=== PATIENT | female | born 1995 | race Caucasian/White ===

== ENCOUNTER 2019-03-26 11:08 | Emergency (ER) | payer SELFPAY ==
[~2019-03-26] VITALS: Ht 162.6 cm; Wt 59.7 kg
[~2019-03-26 11:08] MED LIST: PROM12.512 PO
[2019-03-26 11:47] LABS: BASOPHILS # (AUTO) 0.1 X10'3 (0-0.2); BASOPHILS % (AUTO) 0.7 % (0-1); EOSINOPHILS % (AUTO) 0.2 % (0-6); HEMATOCRIT 42.1 % (35.0-45.0); HEMOGLOBIN 14.2 g/dl (12.0-16.0); LYMPHOCYTES # (AUTO) 1.1 X10'3 (1.1-4.8); LYMPHOCYTES % (AUTO) 12.3 % (21-51); MEAN CORPUSCULAR HEMOGLOBIN 30.4 PG (27.0-31.0); MEAN CORPUSCULAR HGB CONC 33.7 g/dL (33.0-36.5); MEAN CORPUSCULAR VOLUME 90.1 FL (78-98); MEAN PLATELET VOLUME 9.7 FL (7.4-10.4); MONOCYTES # (AUTO) 0.4 X10'3 (0-0.9); MONOCYTES % (AUTO) 4.2 % (2-12); NEUTROPHILS # (AUTO) 7.4 X10'3 (1.8-7.7); NEUTROPHILS % (AUTO) 82.6 % (42-75); PLATELET COUNT 257 X10'3 (140-440); RED BLOOD COUNT 4.68 X10'6 (4.20-5.60); RED CELL DISTRIBUTION WIDTH 12.5 % (11.5-14.5); WHITE BLOOD COUNT 8.9 X10'3 (4.5-11.0)
[2019-03-26 11:52] LABS: URINE HCG NEGATIVE (NEG)
[2019-03-26 11:53] LABS: PARTIAL THROMBOPLASTIN TIME 28 SECONDS (22-32)
[2019-03-26 11:56] LABS: ALANINE AMINOTRANSFERASE 18 U/L (12-78); ALBUMIN 4.6 G/DL (3.4-5.0); ALBUMIN/GLOBULIN RATIO 1.2 (1.1-1.5); ALKALINE PHOSPHATASE 49 IU/L (46-116); ANION GAP 12 (8-16); ASPARTATE AMINO TRANSFERASE 13 U/L (10-37); BILIRUBIN,TOTAL 0.4 MG/DL (0.1-1.0); BLOOD UREA NITROGEN 10 MG/DL (7-18); BUN/CREATININE RATIO 14.3 (6.6-38.0); CALCIUM 8.9 MG/DL (8.5-10.1); CHLORIDE 105 MMOL/L (99-107); GLUCOSE 107 MG/DL (70-104); POTASSIUM 3.8 MMOL/L (3.5-5.1); SODIUM 141 MMOL/L (135-145); TOTAL CARBON DIOXIDE 23.6 MMOL/L (24-32); TOTAL PROTEIN 8.4 G/DL (6.4-8.2); eGFR > 90 ML/MIN
[2019-03-26 12:00] LABS: CLARITY,URINE SLIGHTLY CLOUDY (Clear); COLOR,URINE YELLOW (Yellow); GLUCOSE, URINE NEGATIVE (Neg); KETONES,URINE TRACE mg/dl (Neg); LEUKOCYTE ESTERASE ,URINE NEGATIVE (Neg); NITRITES, URINE NEGATIVE (Neg); OCCULT BLOOD,URINE NEGATIVE (Neg); PROTEIN,URINE NEGATIVE (Neg); UROBILINOGEN,URINE 0.2 E.U/dL (0.2-1.0)
[2019-03-26 12:02] LABS: UA COLLECTION TYPE CLN CATCH MIDSTREAM
[2019-03-26 12:16] LABS: BACTERIA,URINE FEW /HPF (Neg); RBC,URINE NONE SEEN /HPF (0-2); WBC,URINE 0-4 /HPF (0-4)
[2019-03-26 12:17] LABS: MUCUS STRANDS FEW /LPF (Neg); SQUAMOUS EPITHELIAL CELL,UR MODERATE /LPF (FEW)
[2019-03-26] MEDS ORDERED: ONDA8TAB13 PO (12:33)
[2019-03-26] MEDS ORDERED: normal saline 1000ML IV soln IVB ONE ×2 (12:35)
[2019-03-26] MEDS ORDERED: ondansetron/PF 4mg/2ml inj IV ONE (12:35)
[2019-03-26] MEDS ORDERED: pantoprazole 40 MG vial IV ONE (12:35)
[2019-03-26] MEDS ORDERED: loperamide 2mg capsule PO ONE (12:35)
[2019-03-26] MEDS ORDERED: proCHLORperazine 10 MG/2 ml inj IV ONE (13:15)
[2019-03-26 14:02] VITALS: BP 112/68
== END 2019-03-26 14:04 | disposition home or self-care (01) ==
LOC: ER 11:08
DX: K52.9 Noninfective gastroenteritis and colitis, unspecified (principal); R10.13 Epigastric pain; R11.10 Vomiting, unspecified; K21.9 Gastro-esophageal reflux disease without esophagitis; F17.200 Nicotine dependence, unspecified, uncomplicated; F12.90 Cannabis use, unspecified, uncomplicated
CPT/HCPCS: 36415; 71045; 80053; 81001; 81025; 84484; 85025; 85610; 85730; 93005; 96361; 96374; 96375; 99284; C9113; J0780; J2405; J7030; J7040

== ENCOUNTER 2025-05-12 10:47 | Emergency (ER) | payer BC ==
[~2025-05-12] VITALS: Ht 165.1 cm; Wt 58.1 kg
[~2025-05-12 10:47] MED LIST changes: +ONDA-245 PO
[2025-05-12 11:00] VITALS: TEMP 98.9
--- NOTE | 2025-05-12 11:07 | Physician Documentation ---
History of Present Illness ~ Chief Complaint: Flank Pain Stated Complaint: CHEST PAIN Time Seen by MD: 11:05 HPI This is a 30-year-old female who presents to the emergency department for left upper quadrant abdominal pain. She reports that she woke up twice in the night with pain, by the time she woke up this morning the pain was severe and it began to wrap around to the left flank. Denies chills or fever, urinary symptoms. However, she does note that she has had nausea with vomiting of bile. No history of kidney stones in the past. Medication Reconciliation Allergies: Coded Allergies: No Known Allergies (Unverified , 05/12/25) Scheduled Promethazine Hcl (Phenergan), 1 TAB PO Q6H Scheduled PRN Ondansetron 8mg ODT (Ondansetron Odt), 1 TAB PO TID PRN for nausea/vomiting Past Medical History Past Medical History: GERD Past Surgical History: no surgical history Alcohol Use: Rarely Drug Use: marijuana Review of Systems ROS As stated above in the HPI, otherwise all systems are reviewed and negative. Physical Exam Vital Signs: Temperature: 98.9, Source: Temporal, Heart Rate: 78, Respiratory Rate: 18, BP: 116/86, Pulse Oximetry: 99, Weight: 58.100 Oxygen Flow Rate: 0 Physical Exam General: Alert, no apparent distress. HEENT: PERRL, EOMI, no injection, moist mucous membranes. Neck: Full range of motion. Respiratory: Lungs clear, no respiratory distress. Chest: No accessory muscle use. Cardiovascular: Regular rate and rhythm, no murmurs. Gastrointestinal: Soft, nontender, nondistended. Bowels sounds present. No CVA tenderness. Extremities: Normal range of motion, no deformity. Neurologic: Oriented x4. Psychiatric: Normal mood and affect. Skin: Normal color, warm and dry. No edema, no ecchymosis. Progress Results/Orders Results/Orders Orders - LUCRECIA PUGA NP * Iv Access / Saline Lock * (05/12/25 12:10) Ct Abdomen Pelvis (05/12/25 13:00) Completed Orders - LUCRECIA PUGA TRANSIT MECHANIC Normal Saline 1000ml (0.9% Sodium Chlori (05/12/25 12:10) Ketorolac Trometh 15mg/Ml Vial (Toradol (05/12/25 12:10) Ondansetron Inj. (Zofran 4mg/2ml Vial) (05/12/25 12:10) Ct Abdomen Pelvis (05/12/25 13:00) Iohexol 300mg/Ml 100ml Inj. (Omnipaque-3 (05/12/25 12:17) Medications Received in ER Medications (Trade) Dose Ordered Sig/Radha Route PRN Reason Start Time Stop Time Status Last Admin Dose Admin Sodium Chloride 1,000 ml @ 1,000 mls/hr ONCE ONCE IV 05/12/25 12:10 05/12/25 13:09 DC 05/12/25 12:26 1,000 MLS/HR (Toradol injection) 15 mg ONCE ONCE IV 05/12/25 12:10 05/12/25 12:12 DC 05/12/25 12:28 15 MG (Zofran 4mg/2ml vial) 4 mg ONCE ONCE IV 05/12/25 12:10 05/12/25 12:12 DC 05/12/25 12:27 4 MG Vital Signs 05/12/25 05/12/25 05/12/25 05/12/25 11:00 11:17 11:31 12:28 Temp 98.9 Pulse 78 74 Resp 18 16 14 16 B/P (MAP) 116/86 136/63 (87) Pulse Ox 99 97 O2 Flow Rate 0 0 Laboratory Tests Test 05/12/25 11:01 05/12/25 11:03 White Blood Count 7.1 Red Blood Count 4.48 Hemoglobin 13.3 Hematocrit 39.2 Mean Corpuscular Volume 87.6 Mean Corpuscular Hemoglobin 29.6 Mean Corpuscular Hemoglobin Concent 33.8 Red Cell Distribution Width 13.1 Platelet Count 262 Mean Platelet Volume 9.6 Neutrophils (%) (Auto) 69.5 Lymphocytes (%) (Auto) 23.0 Monocytes (%) (Auto) 5.5 Eosinophils (%) (Auto) 1.1 Basophils (%) (Auto) 0.9 Neutrophils # (Auto) 4.9 Lymphocytes # (Auto) 1.6 Monocytes # (Auto) 0.4 Eosinophils # (Auto) 0.1 Basophils # (Auto) 0.1 CBC Comment Sodium Level 136 Potassium Level 3.7 Chloride Level 104 Carbon Dioxide Level 18.4 L Anion Gap 14 Blood Urea Nitrogen 10 Creatinine 0.72 Estimated GFR/1.73 m2 > 90 BUN/Creatinine Ratio 13.9 Glucose Level 107 H Calcium Level 9.1 Total Bilirubin 0.5 Aspartate Amino Transf (AST/SGOT) 17 Alanine Aminotransferase (ALT/SGPT) 15 Alkaline Phosphatase 45 L Total Protein 7.7 Albumin 4.4 Globulin 3.3 Albumin/Globulin Ratio 1.3 Lipase 28 Chemistry Comments Urine Specimen Description Cln catch midstream Urine Color Yellow Urine Clarity Clear Urine pH 6.0 Urine Specific [place] 1.010 Urine Protein Negative Urine Glucose (UA) Negative Urine Ketones >=80 Urine Occult Blood Negative Urine Nitrite Negative Urine Bilirubin Negative Urine Urobilinogen 0.2 Urine Leukocyte Esterase Negative Urine Culture Indicated Not ind Volume Urine Centrifuged 10 ml Urine HCG, Qualitative Negative Urine Comment EKG/XRAY/CT/US/VASC/MRI EKG : Additional Comment Fifty-four: EKG interpreted shows sinus rhythm rate of 64. No ST segment elevation. QTC [address] : Impression [place] [id number] CAT SCAN Patient: KARI DUMONT Medical Record: [id number] [facility] : 1995, Age: 30 Sex: Female Location: ER Patient Status: [facility] ER Service Date/Time: 05/12/251299 Ordering Physician: LUCRECIA PUGA TRANSIT MECHANIC Exam: CT ABDOMEN PELVIS EXAM: CT CT ABDOMEN PELVIS History: stone Comparison Study: None TECHNIQUE: Multidetector CT of the abdomen was performed from lung bases to pubic symphysis. Imaging was performed without IV contrast. Axial, coronal and sagittal multiplanar reformats were obtained from the axial data set by the technologist. Radiation Dose Information: Dose-length product is 720 mGy*cm FINDINGS: Limited sections of the lung bases demonstrate no focal pulmonary mass. The liver, spleen, pancreas, and both adrenal glands demonstrate no acute findings. Hepatomegaly to 17.4 cm. The gallbladder is unremarkable. The stomach is unremarkable. The small bowel loops are not dilated. The appendix is not clearly identified, although there are no secondary signs of appendicitis. No colonic obstruction. Bilateral kidneys are unremarkable. No hydronephrosis. The urinary bladder is partially distended. 2.5 cm right ovarian cyst. No significant lymphadenopathy. No free air or free fluid. The aorta and IVC demonstrate no acute findings. Visualized osseous structures demonstrate no acute abnormality. IMPRESSION: 1. Limited evaluation in the absence of IV contrast. 2. No obstructive arthropathy. No renal stone or hydronephrosis noted. Recent passage of stone is not excluded. 3. No acute intra-abdominal process. 4. If there is continued concern for abdominal infection or pathology, CT with IV contrast is recommended. Electronically Signed by:MAYELA WITT MD Date & Time: 05/12/25 1323 Dictated by: MAYELA WITT MD Dictation date and time: 05/12/25 1323 Primary Care Provider: NO PRIMARY CARE PROVIDER cc: LUCRECIA PUGA TRANSIT MECHANIC ~ Medical Decision Making Additional information obtaine: old records Findings last visit to this ER 03/26/19 for gastroenteritis Urinary Diff Dx:Considerations: Include: Other Genital Diff Dx:Considerations: Include: Other Additional Comment Most Likely Diagnoses: Peptic ulcer disease (gastric or duodenal): The intermittent left upper quadrant pain radiating to the back with bilious vomiting is consistent with gastric ulcer, which typically presents with dyspepsia in 81% of patients. While duodenal ulcers classically cause epigastric pain that improves with eating, gastric ulcers can present with more variable pain patterns and may radiate to the back. The bilious vomiting suggests possible gastric outlet involvement or severe gastritis. At age 30 without alarm features, a evft-sai-crifs strategy for H. pylori is recommended before endoscopy.[1-3] Acute pancreatitis: The combination of constant pain radiating to the back with nausea and vomiting is highly characteristic of pancreatitis. Acute pancreatitis presents with abdominal pain that radiates to the back, is exacerbated by eating or lying supine, and is accompanied by nausea and vomiting. While gallstones are the most common cause, other etiologies include alcohol use, hypertriglyceridemia, medications, and autoimmune causes. The absence of prior gallstone history does not exclude biliary pancreatitis from a small stone that may have passed.[4] Functional dyspepsia: This accounts for 70% of dyspepsia cases and presents with postprandial fullness, early satiety, and epigastric pain or burning. The intermittent nature and lack of structural findings on initial evaluation would be consistent. However, the radiation to the back and bilious vomiting are less typical features.[2] Gastroesophageal reflux disease (GERD): While GERD typically presents with heartburn and regurgitation, it can manifest as epigastric or chest pain. The [employer] notes that GERD symptoms may overlap with other disorders. However, the left upper quadrant location and radiation to the back make this less likely.[5] Renal colic (left nephrolithiasis): Classic presentation includes acute colicky flank pain radiating to the groin, though lower ureteral stones can cause lower quadrant pain. The left upper quadrant location could represent upper ureteral or renal pelvic stone. Nausea and vomiting occur due to shared splanchnic innervation. Hematuria is present in approximately 90% of cases but its absence does not exclude stones.[6] Most Important Not to Miss Diagnoses: Splenic infarction: This presents with abdominal pain (82.2% of cases), often in the left upper quadrant, and can radiate to the flank or chest. Associated findings include leukocytosis (67%), elevated LDH (72%), and elevated CRP (97.5%). Rule out with abdominal CT with contrast, which has the highest diagnostic yield. In a 30-year-old, consider underlying causes including antiphospholipid syndrome, hematologic disorders, or endocarditis.[7] Pancreatic neoplasm: While uncommon at age 30, pancreatic cancer can present with epigastric pain radiating to the back, nausea, and vomiting. New-onset diabetes may be an associated finding. Rule out with contrast-enhanced CT or MRI/MRCP. The intermittent nature makes this less likely, but chronic pancreatitis or cystic lesions should be considered if imaging is performed.[8] Myocardial ischemia: Atypical presentations of acute coronary syndrome can include epigastric pain with nausea and vomiting, particularly in young women. Rule out with ECG and high-sensitivity cardiac troponin. The radiation to the back and intermittent nature over time make this less likely, but cardiac causes should be excluded given the potential consequences.[9] Departure Time of Disposition: 13:42 Impression: Primary Impression: Acute left flank pain Condition: Stable Discharge Instructions: Flank Pain, Adult Additional Instructions: No clear cause of your pain, but it is presumed to be musculoskeletal strain or part of a viral process. Use the ondansetron as needed for nausea. Take acetaminophen or ibuprofen per label instructions as needed for pain. Follow up with the primary care provider next week. Return if worse Referrals: NO PRIMARY CARE PROVIDER (PCP) Prescriptions Ondansetron 8mg ODT (Ondansetron Odt) 8 Mg Tab.rapdis 1 TAB PO Q8H for nausea/vomiting for 2 Days, #6 TAB 0 Refills Prov: LUCRECIA PUGA NP 05/12/25 Education Educated: Patient Educated regarding: diagnosis, treatment, prognosis, need for follow up Signature Scribe Signature: x Attestation: The note accurately reflects work and decisions made by me.Lucrecia Gilbert NP 05/12/25 13:44 LUCRECIA PUGA NP May 12, 2025 11:07
--- NOTE | 2025-05-12 11:08 | ELECTROCARDIOGRAPH REPORT ---
[facility] Test Date: 2025-05-12 Test Time: 10:54:26 Pat Name: KARI DUMONT Department: EMERGENCY ROOM Room: Gender: F Nuclear Technician: [place] : 1995 Requested By: PHUC SOARES [facility]: [id number] Reading MD: Dr. NAYELI Fitch Measurements Intervals [place] Rate: 64 P: 69 TN: 130 QRS: 80 QRSD: 88 T: 49 QT: 388 QTc: 401 Interpretive Statements Sinus rhythm Minimal ST depression, diffuse leads Electronically Signed On 05-17-2025 20:56:[address] NAYELI Fitch Please click the below link to view image of tracing.
[2025-05-12 11:31] LABS: MEAN PLATELET VOLUME 9.6 FL (7.4-10.4); RED CELL DISTRIBUTION WIDTH 13.1 % (11.5-14.5)
[2025-05-12 11:44] LABS: CREATININE 0.72 MG/DL (0.40-0.90); TOTAL CARBON DIOXIDE 18.4 MMOL/L (24-32); eCRCL 103 ML/MIN; eGFR > 90 ML/MIN
[2025-05-12 12:04] LABS: LEUKOCYTE ESTERASE ,URINE NEGATIVE (Neg); NITRITES, URINE NEGATIVE (Neg); OCCULT BLOOD,URINE NEGATIVE (Neg)
[2025-05-12] MEDS ORDERED: ketorolac trometh 30MG/ML vial 30 MG/ML VIAL IM ONE (12:05)
[2025-05-12 12:07] LABS: URINE HCG NEGATIVE (NEG)
[2025-05-12 12:08] LABS: UA COLLECTION TYPE CLN CATCH MIDSTREAM
[2025-05-12] MEDS ORDERED: iohexol 300mg/ml 100ml inj. ONE (12:17)
[2025-05-12] MEDS: normal saline 1000ml 1,000 ML IV ONE (12:26)
[2025-05-12] MEDS: ondansetron/PF 4mg/2ml inj IV ONE (12:27)
[2025-05-12] MEDS: ketorolac trometh 15mg/ml vial 15 MG/ML ML IV ONE (12:28)
--- NOTE | 2025-05-12 13:26 | RADIOLOGY REPORT ---
EXAM: CT CT ABDOMEN PELVIS History: stone Comparison Study: None TECHNIQUE: Multidetector CT of the abdomen was performed from lung bases to pubic symphysis. Imaging was performed without IV contrast. Axial, coronal and sagittal multiplanar reformats were obtained from the axial data set by the technologist. Radiation Dose Information: Dose-length product is 720 mGy*cm FINDINGS: Limited sections of the lung bases demonstrate no focal pulmonary mass. The liver, spleen, pancreas, and both adrenal glands demonstrate no acute findings. Hepatomegaly to 17.4 cm. The gallbladder is unremarkable. The stomach is unremarkable. The small bowel loops are not dilated. The appendix is not clearly identified, although there are no secondary signs of appendicitis. No colonic obstruction. Bilateral kidneys are unremarkable. No hydronephrosis. The urinary bladder is partially distended. 2.5 cm right ovarian cyst. No significant lymphadenopathy. No free air or free fluid. The aorta and IVC demonstrate no acute findings. Visualized osseous structures demonstrate no acute abnormality. IMPRESSION: 1. Limited evaluation in the absence of IV contrast. 2. No obstructive arthropathy. No renal stone or hydronephrosis noted. Recent passage of stone is not excluded. 3. No acute intra-abdominal process. 4. If there is continued concern for abdominal infection or pathology, CT with IV contrast is recommended.
[2025-05-12] MEDS ORDERED: ONDA-245 PO (13:44)
[2025-05-12 13:53] VITALS: BP 115/64; PULSE 74; RESP 16; O2SAT 99
== END 2025-05-12 13:55 | disposition home or self-care (01) ==
LOC: ER 10:47
DX: R10.12 Left upper quadrant pain (principal); R11.2 Nausea with vomiting, unspecified; F12.90 Cannabis use, unspecified, uncomplicated; K21.9 Gastro-esophageal reflux disease without esophagitis; Z79.899 Other long term (current) drug therapy
CPT/HCPCS: 36415; 74177; 80053; 81003; 81025; 83690; 85025; 93005; 96361; 96374; 96375; 99285; J1885; J2405; J7030; Q9967